=== PATIENT | male | born 1975 | race Caucasian/White ===

== ENCOUNTER 2021-08-10 07:13 | Outpatient (CLI) | payer BC, SELFPAY ==
[2021-08-10 08:08] LABS: Hematocrit 44.5 % (42.0-52.0); Hemoglobin 14.9 g/dL (14.0-18.0); Mean Corpuscular HGB Conc 33.5 g/dl (32-36); Mean Corpuscular Hemoglobin 29.7 pg (26-34); Mean Corpuscular Volume 88.6 fl (80-100); Mean Platelet Volume 9.3 fl (7.4-10.4); Platelet Count Result 217 k/mm3 (150-375); Red Blood Count 5.02 M/mm3 (4.6-6.20); Red Cell Distribution Width 12.4 % (11.5-14.5)
[2021-08-10 08:18] LABS: Anion Gap 6 mmol/L (8-16); Blood Urea Nitrogen 13 mg/dL (9-20); Calcium 9.5 mg/dL (8.4-10.2); Carbon Dioxide 28 mmol/L (22-30); Chloride 103 mmol/L (98-107); Cholesterol 176 mg/dL (0-200); Estimated Glomerular Filt Rate > 60; Glucose 104 mg/dL (65-110); HDL Direct 52 mg/dL; Potassium 4.1 mmol/L (3.4-5.0); Sodium 137 mmol/L (137-145); Triglycerides 67 mg/dL (<150)
[2021-08-10 08:28] LABS: LDL Cholesterol Direct 102 mg/dL
[2021-08-10 08:49] LABS: Prostate Specific Antigen 0.4 ng/mL (< OR = 4.0); Thyroid Stimulating Hormone 0.946 uIU/mL (0.465-4.680)
[2021-08-17 03:17] LABS: Testosterone Free 92.9 pg/mL (35.0-155.0); Testosterone Total 641 ng/dL (250-1100)
== END 2021-08-10 07:14 | disposition home or self-care (01) ==
PROVIDERS: PCP Family Medicine; Visit Provider Nurse Practitioner Family
DX: Z13.1 Encounter for screening for diabetes mellitus (principal); Z13.29 Encounter for screening for other suspected endocrine disorder; I10 Essential (primary) hypertension; Z12.5 Encounter for screening for malignant neoplasm of prostate; R53.83 Other fatigue
CPT/HCPCS: 36415; 80048; 80061; 84153; 84402; 84403; 84443; 85027; G0103

== ENCOUNTER 2024-03-29 09:34 | Outpatient (CLI) | payer BC, SELFPAY ==
[2024-03-29 11:05] LABS: Vitamin D 25 Hydroxy 31.1 ng/mL
[2024-03-29 11:20] LABS: Alanine Aminotransferase 24 U/L (6-50); Albumin Level 4.6 g/dL (3.5-5.1); Alkaline Phosphatase 41 U/L (38-126); Anion Gap 7 mmol/L (4-12); Aspartate Amino Transferase 30 U/L (17-59); Bilirubin,Total 0.9 mg/dL (0.2-1.3); Blood Urea Nitrogen 15 mg/dL (9-20); Calcium 9.2 mg/dL (8.4-10.2); Carbon Dioxide 30 mmol/L (22-30); Chloride 100 mmol/L (98-107); Cholesterol 222 mg/dL (0-200); Estimated Glomerular Filt Rate > 60; Glucose 98 mg/dL (65-110); HDL Direct 66 mg/dL; Potassium 4.1 mmol/L (3.4-5.0); Sodium 137 mmol/L (137-145); Triglycerides 84 mg/dL (<150)
[2024-03-29 11:32] LABS: LDL Cholesterol Direct 133 mg/dL
[2024-03-29 11:48] LABS: Prostate Specific Antigen 0.5 ng/mL (< OR = 4.0); Thyroid Stimulating Hormone 0.929 uIU/mL (0.465-4.680)
[2024-04-04 15:22] LABS: Testosterone Free 75.8 pg/mL (35.0-155.0); Testosterone Total 531 ng/dL (250-1100)
== END 2024-03-29 09:35 | disposition home or self-care (01) ==
PROVIDERS: PCP Family Medicine; Visit Provider Family Medicine
DX: E55.9 Vitamin D deficiency, unspecified (principal); R53.83 Other fatigue; Z86.79 Personal history of other diseases of the circulatory system; Z13.1 Encounter for screening for diabetes mellitus; Z12.5 Encounter for screening for malignant neoplasm of prostate; Z13.29 Encounter for screening for other suspected endocrine disorder; Z13.220 Encounter for screening for lipoid disorders
CPT/HCPCS: 36415; 80053; 80061; 82306; 84153; 84402; 84403; 84443; G0103